=== PATIENT | male | born 1935 | race Caucasian/White ===

== ENCOUNTER 2019-11-26 20:18 | Inpatient (IN) | payer MEDICAID ==
[~2019-11-26] VITALS: Ht 172.7 cm; Wt 93.0 kg
[2019-11-27] VITALS (7 sets, daily range): BP systolic 145–192; BP diastolic 83–108
--- NOTE | 2019-11-27 00:40 | NUR ---
small wind energy installertentmaker notes Received Pt from [facility] ambulance service Rehabilitation Services Aide. Pt is a direct admit from [facility]. Pt arrived at the unit with a gurney and ACLS protocol. Pt is 84 Y O M with a diagnose of Accelerated hypertension by Stas Benitez MD. Pt is alert and orientedx2-3 with episode of confusion. Respiration is normal and unlabored. No SOB. No S/S of distress noted. Tele monitor showed sinus rhytm. IV sites at R hand# 22 is clean, intact, and flush without resistance. Pt is complaining of back pain and bilateral knee pain. MD is aware and notified. Skin assessment is done and performed. Skin pictures are taken and placed at Pt's chart. [place] Pt to the room and the use of amenities and the use of call light. Pt's belongings was checked by BRITTNI Belle and signed by Pt. Safety precautions is maintained. Bed at low position, brakes locked, side rails upX3, urinal at the bed side and call light is within reach. Will continue to monitor.
[2019-11-27] MEDS ORDERED: ASPI-1169 PO (01:54)
[2019-11-27] MEDS ORDERED: LISI40TA4 PO (01:54)
[2019-11-27] MEDS ORDERED: LORA-259 PO (01:54)
[2019-11-27] MEDS ORDERED: HYDR-4384 PO (01:54)
[2019-11-27] MEDS ORDERED: Z GUARD REMEDY 2 OZ OINT TP PRN (03:00)
[2019-11-27] MEDS ORDERED: ONDANSETRON HCL/PF 4 MG/2 ML VIAL IVP PRN (03:00)
[2019-11-27] MEDS ORDERED: HYDROCODONE/APAP 5/325MG 1 EACH TABLET PO SCH (03:00)
[2019-11-27] MEDS ORDERED: LORAZEPAM 1 MG TABLET PO PRN (03:00)
[2019-11-27] MEDS ORDERED: POTASSIUM CHLORIDE 20 MEQ TAB.PRT.SR PO ONE (03:00)
[2019-11-27] MEDS ORDERED: ACETAMINOPHEN 325 MG TABLET PO PRN (03:00)
[2019-11-27] MEDS ORDERED: MAG HYDROX/AL HYDROX/SIMETH 30 ML UDC PO PRN (03:00)
[2019-11-27] MEDS ORDERED: ZOLPIDEM TARTRATE 5 MG TABLET PO PRN (03:00)
--- NOTE | 2019-11-27 03:00 | NUR ---
physician coder notes Informed and notified Stas Benitez MD regarding covid 19 swab. Pt came from [facility] and has not been tested for covid 19. Pt is afebrile at this time. Pt stated Pt has fever before coming to [facility]. ordered covid 19 swab rapid test. Ordered carried out.
[2019-11-27] MEDS: HYDROCODONE/APAP 5/325MG 1 EACH TABLET PO PRN ×3 (03:55→20:08)
[2019-11-27] MEDS: hydrALAZINE HCL 25 MG TABLET PO SCH ×3 (04:04→20:49)
--- NOTE | 2019-11-27 04:10 | NUR ---
spinning bath person notes Collected UA from patient. Went to lab to dropped UA and picked up covid 19 rapid test.
--- NOTE | 2019-11-27 04:23 | NUR ---
weatherization technician notes Swab Pt for covid 19 rapid test as ordered. Pt tolerated well. Pt verbalized understanding. Dropped covid 19 test to lab.
--- NOTE | 2019-11-27 05:00 | NUR ---
whistle punk notes Received a phone call from lab regarding Pt's result covid 19 rapid test is negative. Will continue to monitor.
--- NOTE | 2019-11-27 06:50 | NUR ---
can pusher closing notes Pt is resting in bed comfortably. Pt is alert and orientedX2 with episode of confusion. Respiration is even and unlabored. No SOB. No S/S of distress noted. Routine meds were given as ordered. VS is stable. Tele monitor showed SR. IV sites at R hand# 22 is clean, intact, patent and SL. All needs met and attended. Safety precautions is maintained. Bed at low position, brakes locked, side rails upX2 and call light is within reach. Will endorse to morning for CHELY.
[2019-11-27 07:48] LABS: APPEARANCE,URINE CLEAR (CLEAR); BILIRUBIN,URINE NEGATIVE (NEGATIVE); BLOOD, URINE TRACE-INTA Ery/uL (NEGATIVE); COLOR,URINE YELLOW (YELLOW); KETONES,URINE 15 (NEGATIVE); LEUKOCYTE ESTERASE ,URINE NEGATIVE (NEGATIVE); NITRITE, URINE NEGATIVE (NEGATIVE); PROTEIN,URINE 30 mg/dl (NEGATIVE); UGLUCOSE NEGATIVE (NEGATIVE); UROBILINOGEN,URINE 0.2 EU/dL (0.2)
[2019-11-27 08:03] LABS: BASOPHILS # (AUTO) 0.1 /CMM (0.0-0.2); BASOPHILS % (AUTO) 0.6 % (0.0-2.0); HEMATOCRIT 49 % (39-51); HEMOGLOBIN 16.3 g/dL (13.5-17.5); LYMPHOCYTES # (AUTO) 1.6 /CMM (0.8-4.8); MEAN CORPUSCULAR HGB CONC 34 g/dl (31.0-36.0); MEAN CORPUSCULAR VOLUME 97 fL (80-96); MONOCYTES # (AUTO) 0.8 /CMM (0.1-1.30); MONOCYTES % (AUTO) 8.3 % (2.0-12.0); NEUTROPHILS # (AUTO) 7.3 /CMM (1.8-8.9); NEUTROPHILS % (AUTO) 74.1 % (43.0-81.0); PLATELET COUNT (AUTO) 233 /CMM (150-450); RED BLOOD CELL COUNT(AUTO) 5.01 MIL/uL (4.5-6.0); WHITE BLOOD COUNT (AUTO) 9.8 K/uL (4.3-11.0)
--- NOTE | 2019-11-27 08:10 | NUR ---
bowling ball grader opening notes Pt is resting in bed comfortably. Pt is alert and orientedX2 with episode of confusion. Respiration is even and unlabored. No SOB. No S/S of distress noted. Routine VS is stable. Tele monitor showed SR. IV sites at R hand# 22 is clean, intact, patent and SL. All needs met and attended. Safety precautions is maintained. Bed at low position, brakes locked, side rails upX2 and call light is within reach. Will continue to monitor.
[2019-11-27 08:14] LABS: CALCIUM, SERUM 9.4 mg/dL (8.5-10.1); CREATININE 1.1 mg/dL (0.6-1.3); MAGNESIUM 2.2 mg/dL (1.8-2.4); PHOSPHORUS 2.5 mg/dL (2.5-4.9); POTASSIUM 3.6 mmol/L (3.5-5.1)
[2019-11-27] MEDS: ASPIRIN 81 MG TAB.CHEW PO SCH (08:24)
[2019-11-27] MEDS: LISINOPRIL (20MG) 20 MG TABLET PO SCH (08:30)
--- NOTE | 2019-11-27 08:54 | NUR ---
WOUND CARE CONSULT: PT PRESENTS WITH RASH/REDNESS TO ABDOMINAL/GROIN FOLDS, PERINEUM AND SCROTUM, PRESENT ON ADMISSION. PT IS INCONTINENT AND HAS DIFFICULTY USING URINAL PER NURSING STAFF. RECOMMENDATIONS MADE FOR SKIN PROTECTION. DISCUSSED WITH NURSING STAFF. PT IS ON CHUNG ISOFLEX LOW AIRLOSS BED. WILL SEE PRN. CINTRON IN AGREEMENT WITH PLAN OF CARE. Addendum: 11/27/19 at 0855 by CHARLIE BRAXTON WNDNU Amended: Links added.
[2019-11-27 10:01] LABS: BACTERIA,URINE Few /HPF (None Seen); SQUAMOUS EPITHELIAL CELL,UR Rare /HPF (None Seen); TRIPLE PHOSPHATE CRYSTAL,UR Few /HPF (None Seen); WBC,URINE 0-2 /HPF (0-3)
[2019-11-27] MEDS: ENOXAPARIN SODIUM 40 MG/0.4 ML DISP.SYRIN SQ SCH (10:52)
[2019-11-27] MEDS: CLOTRIMAZOLE 1% 15 GM TUBE TP SCH ×2 (10:54→17:39)
[2019-11-27 12:46] LABS: THYROID STIMULATING HORMONE 0.318 uIU/mL (0.358-3.74)
[2019-11-27] MEDS: CARVEDILOL 12.5 MG TABLET PO SCH ×2 (12:57→20:50)
[2019-11-27] MEDS ORDERED: IBUPROFEN 400 MG TABLET PO PRN (15:00)
--- NOTE | 2019-11-27 17:52 | NUR ---
high school professional closing notes Pt is resting in bed comfortably. Pt is alert and orientedX2 with episode of confusion getting out of bed walking around not compliant with instructions. Respiration is even and unlabored. No SOB. No S/S of distress noted. VS is stable. Tele monitor D/C. IV sites at R hand# 22 pt pulled it out ,site intact, p. All needs met and attended. Safety precautions is maintained. Bed at low position, alarms on ,brakes locked, side rails upX2 and call light is within reach. Will endorse to oncoming nurse for CHELY.
--- NOTE | 2019-11-27 20:00 | NUR ---
MS RN OPENING NOTES RECEIVED PATIENT IN BED, AWAKE, CONSCIOUS, COOPERATIVE, AMBULATORY WITH ASSIST, BREATHING AT ROOM AIR, UNLABORED BREATHING, NO SIGNS OF RESPIRTORY DISTRESS, NO IV ACCESS, PER NURSE FROM AM SHIFT PATIENT PULLED OUT IV ACCESS, SIDE RAILS UP.
[2019-11-28] VITALS (12 sets, daily range): BP systolic 103–193; BP diastolic 47–115
[2019-11-28] MEDS: HYDROCODONE/APAP 5/325MG 1 EACH TABLET PO PRN ×2 (04:35→09:16)
[2019-11-28] MEDS: hydrALAZINE HCL 25 MG TABLET PO SCH (05:41)
--- NOTE | 2019-11-28 05:41 | NUR ---
MS RN NOTES PATIENT'S BP- 213/129, HR- 93. PATIENT WAS WALKING AND IN PAIN PRIOR TO V/S.
--- NOTE | 2019-11-28 06:15 | NUR ---
MS RN NOTES ADVISED PATIENT TO LAY DOWN IN BED. JOHN- 195/115, HR- 89.
--- NOTE | 2019-11-28 06:40 | NUR ---
MS RN NOTES WHILE PATIENT IS COOPERATIVE IN LAYING IN BED. BP- 190/115, HR- 89.
--- NOTE | 2019-11-28 06:47 | NUR ---
MS RN CLOSING NOTES ENDORSED PATIENT IN BED, AWAKE, CONSCIOUS, COOPERATIVE, AMBULATORY WITH ASSIST, BREATHING AT ROOM AIR, UNLABORED BREATHING, NO SIGNS OF RESPIRATORY DISTRESS, NO IV ACCESS, PER NURSE FROM AM SHIFT YESTERDAY PATIENT PULLED OUT IV ACCESS, SIDE RAILS UP FOR SAFETY, DUE MEDS GIVEN, PAIN MED GIVEN.
--- NOTE | 2019-11-28 06:57 | NUR ---
MS RN NOTES PATIENT'S BP- 197/106, HR- 90.
--- NOTE | 2019-11-28 07:29 | NUR ---
WOUND CARE: PT IS REQUESTING NAIL TRIM. DR CASTRO TO BE CONSULTED FOR NAILS. MD IN AGREEMENT WITH PLAN OF CARE.
--- NOTE | 2019-11-28 07:30 | NUR ---
RN Opening note Received patient in bed, AO x 2-3, confused, able to responds all stimuli. Does no c/o pain or distress. Skin is warm to touch, kept clean/dry. Respiratory even and unlabored in room air. Keep bed in lock with elevated HOB for ensure airway and aspiration precaution. Call light within reach, will continue to monitor for safety.
[2019-11-28 08:04] LABS: BASOPHILS % (AUTO) 0.3 % (0.0-2.0); EOSINOPHILS % (AUTO) 1.8 % (0.0-6.0); HEMATOCRIT 47 % (39-51); HEMOGLOBIN 15.8 g/dL (13.5-17.5); LYMPHOCYTES # (AUTO) 1.7 /CMM (0.8-4.8); LYMPHOCYTES % (AUTO) 18.4 % (20.0-44.0); MEAN CORPUSCULAR HGB CONC 34 g/dl (31.0-36.0); MEAN CORPUSCULAR VOLUME 98 fL (80-96); MONOCYTES # (AUTO) 0.7 /CMM (0.1-1.30); MONOCYTES % (AUTO) 7.3 % (2.0-12.0); NEUTROPHILS # (AUTO) 6.5 /CMM (1.8-8.9); NEUTROPHILS % (AUTO) 72.2 % (43.0-81.0); PLATELET COUNT (AUTO) 231 /CMM (150-450); RED BLOOD CELL COUNT(AUTO) 4.84 MIL/uL (4.5-6.0)
[2019-11-28 08:17] LABS: ALBUMIN 3.3 g/dL (3.4-5.0); BILIRUBIN,TOTAL 0.8 mg/dL (0.2-1.0); CALCIUM, SERUM 9.3 mg/dL (8.5-10.1); MAGNESIUM 2.2 mg/dL (1.8-2.4); PHOSPHORUS 2.4 mg/dL (2.5-4.9); POTASSIUM 3.9 mmol/L (3.5-5.1); TOTAL PROTEIN, SERUM 7.6 g/dL (6.4-8.2)
[2019-11-28] MEDS: ENOXAPARIN SODIUM 40 MG/0.4 ML DISP.SYRIN SQ SCH (08:59)
[2019-11-28] MEDS: ASPIRIN 81 MG TAB.CHEW PO SCH (08:59)
[2019-11-28] MEDS: LISINOPRIL (20MG) 20 MG TABLET PO SCH ×2 (09:00→16:59)
[2019-11-28] MEDS ORDERED: CLONIDINE HCL 0.1 MG TABLET PO PRN (09:00)
[2019-11-28] MEDS: CARVEDILOL 12.5 MG TABLET PO SCH ×2 (09:00→21:20)
[2019-11-28] MEDS: CLOTRIMAZOLE 1% 15 GM TUBE TP SCH ×2 (09:01→17:01)
[2019-11-28] MEDS: ISOSORBIDE DINITRATE (20MG) 20 MG TABLET PO SCH ×2 (09:18→16:58)
--- NOTE | 2019-11-28 09:38 | NUR ---
Patient going have CTA, obtained sign of consent by Son/Mikey Jimenez
[2019-11-28] MEDS ORDERED: K PHOS NEUTRAL 250 MG TABLET PO ONE (10:00)
[2019-11-28] MEDS ORDERED: IV NS 0.9% 500 ML IV ONE (11:00)
[2019-11-28] MEDS ORDERED: hydrALAZINE HCL 25 MG TABLET PO SCH (13:00)
[2019-11-28] MEDS: hydrALAZINE HCL 50 MG TABLET PO SCH ×2 (13:00→21:19)
--- NOTE | 2019-11-28 15:45 | NUR ---
10:20 Arrived tag and label cutter to case picker patient for CTA, noticed decrease bp -109/62, p-97. Rechecked with large size bp cuff shows sbp-77, pale face in color, called rapid response. Rechecked BP-98/56, p-97, BS:154mg/dl, DNP/Edel was bed side and received order start 500ml NS bolus x 1, check vital sign Q15min x 1hour, hold BP, pain meds and pt going Tele. Documented vital signs on intervention. Patient is stable vital signs, respiratory even and unlabored in room air. Pt left to CTA in stable condition.
--- NOTE | 2019-11-28 16:30 | NUR ---
Patient is back from CTA in stable condition.
--- NOTE | 2019-11-28 17:55 | NUR ---
RN Closing note Patient in bed comfortably, no s/s of distress observed. Pt had rapid response and cancelled in 2 min due to patient stable condition. Does no c/o pain, skin is warm to touch, kept clean/dry, patient pulled new IV site, and replaced again IV line on right AC 22 gauge by helper animal laboratory. Respiratory even and unlabored with oxygen. Keep bed in lock with elevated HOB for ensure airway and aspiration precaution. Call light within reach, will endorse warehouse shift supervisor.
--- NOTE | 2019-11-28 17:56 | NUR ---
Patient left to CTA in stable condition.
[2019-11-28] MEDS ORDERED: IV NS 0.9% 250 ML IV ONE (17:59)
[2019-11-28] MEDS ORDERED: IOHEXOL-350 100 ML VIAL IV ONE (17:59)
[2019-11-28] MEDS ORDERED: METOPROLOL TARTRATE INJ 5 MG/5 ML AMPUL ONE ×4 (18:11→18:55)
[2019-11-28] MEDS ORDERED: NITROGLYCERIN 0.4 MG/TAB BOTTLE ONE (18:11)
[2019-11-28] MEDS: METOPROLOL TARTRATE INJ 5 MG/5 ML AMPUL IVP PRN ×10 (18:13→18:58)
--- NOTE | 2019-11-28 19:18 | NUR ---
CTA PROCEDURE WELL TOLERATED BY THE PT. V/S STABLE. KEPT RESTED AND COMFORTABLE. REPORT GIVEN TO PRIMARY RN FOR CHELY AND MONITORING.
--- NOTE | 2019-11-28 19:40 | NUR ---
COMMERCIAL SUBCONTRACTOR OPENING NOTES RECEIVED PATIENT FROM CTA PROCEDURE, ALERT AND ORIENTED X 2-3. VERBALLY RESPONSIVE AND ABLE TO FOLLOW DIRECTIONS. BREATHING REGULAR AND UNLABORED ON ROOM AIR. LEFT AC G22 IV LINE INTACT AND PATENT, FLUSHING WELL WITH NO BLEEDING OR S/S OF INFILTRATION NOTED. ON CARDIAC MONITORING WITH NSR AT 89bpm. DENIES SUICIDAL IDEATION OF PAIN/DISCOMFORT AT THIS TIME. BED LOW AND LOCKED ON SEMI FOWLERS POSITION. CALL LIGHT IN REACH. WILL CONTINUE TO MONITOR.
[2019-11-28] MEDS ORDERED: NITROGLYCERIN 0.4 MG/TAB BOTTLE SL ONE (20:00)
--- NOTE | 2019-11-28 21:20 | NUR ---
HAND FLESHER NOTES BP 190/115, DUE HYDRALAZINE AND CARVEDILOL GIVEN BY MOUTH. WILL RECHECK BP AFTER 1HR.
--- NOTE | 2019-11-28 22:20 | NUR ---
OLD COIN DEALER NOTES BP 122/79 HR 83
[2019-11-29] VITALS: BP 141/88
[2019-11-29] MEDS: HYDROCODONE/APAP 5/325MG 1 EACH TABLET PO PRN (00:13)
--- NOTE | 2019-11-29 00:15 | NUR ---
MAGAZINE FILLER NOTES COMPLAINED OF 7/10 LOWER BACK PAIN, NORCO 5/325 GIVEN BY MOUTH. NON-PHARMACOLOGICAL INTERVENTIONS PROVIDED. VITAL SIGNS WNL. WILL CONTINUE TO MONITOR.
[2019-11-29 04:00] VITALS: BP_SYST 152; BP_SYST 161; BP_DIAS 89; BP_DIAS 95
--- NOTE | 2019-11-29 04:30 | NUR ---
LEAD QA ANALYST NOTES BP 161/95, DUE HYDRALAZINE GIVEN BY MOUTH. WILL RECHECK BP AFTER 1HR.
[2019-11-29 05:00] VITALS: BP 152/79
[2019-11-29] MEDS: hydrALAZINE HCL 50 MG TABLET PO SCH ×2 (05:13→12:43)
--- NOTE | 2019-11-29 05:30 | NUR ---
GROCERY STORE BAGGER NOTES BP 1552/79 HR 89
--- NOTE | 2019-11-29 06:20 | NUR ---
MACHINE FEED OPERATOR CLOSING NOTES PATIENT IN BED ALERT AND ORIENTED X 2-3 FORGETFUL AND WITH EPISODES OF CONFUSION. AFEBRILE WITH NO S/S OF DISTRESS OBSERVED. LEFT AC G22 IV LINE PATENT AND FLUSHING WELL MAINTAINED ON CARDIAC MONITORING WITH NSR AT 85bpm. NO COMPLAINTS OF PAIN/DISCOMFORT REPORTED AT THIS TIME. BED LOW AND LOCKED ON SEMI FOWLERS POSITION. CALL LIGHT IN REACH. WILL ENDORSE TO MORNING SHIFT FOR CHELY.
[2019-11-29 07:28] LABS: BASOPHILS % (AUTO) 0.4 % (0.0-2.0); EOSINOPHILS % (AUTO) 1.7 % (0.0-6.0); HEMATOCRIT 43 % (39-51); HEMOGLOBIN 14.3 g/dL (13.5-17.5); LYMPHOCYTES # (AUTO) 1.5 /CMM (0.8-4.8); LYMPHOCYTES % (AUTO) 16.1 % (20.0-44.0); MEAN CORPUSCULAR HGB CONC 33 g/dl (31.0-36.0); MEAN CORPUSCULAR VOLUME 97 fL (80-96); MONOCYTES # (AUTO) 0.7 /CMM (0.1-1.30); MONOCYTES % (AUTO) 7.4 % (2.0-12.0); NEUTROPHILS # (AUTO) 6.9 /CMM (1.8-8.9); NEUTROPHILS % (AUTO) 74.4 % (43.0-81.0); PLATELET COUNT (AUTO) 215 /CMM (150-450); RED BLOOD CELL COUNT(AUTO) 4.42 MIL/uL (4.5-6.0); WHITE BLOOD COUNT (AUTO) 9.3 K/uL (4.3-11.0)
[2019-11-29 07:33] LABS: CALCIUM, SERUM 8.8 mg/dL (8.5-10.1); CREATININE 1.2 mg/dL (0.6-1.3); MAGNESIUM 2.1 mg/dL (1.8-2.4); PHOSPHORUS 3.4 mg/dL (2.5-4.9); POTASSIUM 3.4 mmol/L (3.5-5.1)
[2019-11-29 08:00] VITALS: BP 141/93
[2019-11-29] MEDS: ASPIRIN 81 MG TAB.CHEW PO SCH (08:46)
[2019-11-29] MEDS: CARVEDILOL 12.5 MG TABLET PO SCH (08:47)
[2019-11-29] MEDS: POTASSIUM CHLORIDE 20 MEQ TAB.PRT.SR PO SCH ×2 (08:47→08:57)
[2019-11-29] MEDS: ENOXAPARIN SODIUM 40 MG/0.4 ML DISP.SYRIN SQ SCH (08:48)
[2019-11-29] MEDS: CLOTRIMAZOLE 1% 15 GM TUBE TP SCH ×2 (08:58→16:33)
[2019-11-29] MEDS: LISINOPRIL (20MG) 20 MG TABLET PO SCH ×2 (09:00→17:00)
[2019-11-29] MEDS: ISOSORBIDE DINITRATE (20MG) 20 MG TABLET PO SCH ×2 (09:57→16:31)
--- NOTE | 2019-11-29 12:44 | NUR ---
RN NOTEDS-- HYDRALAZINE HELD D/T PT HAVING EPISODES OF HYPOTENSION. CURRENT BP 115/63, HR 74. WILL CONTINUE TO MONITOR.
[2019-11-29 16:00] VITALS: BP 122/85
[2019-11-29] MEDS ORDERED: CLOT15CR35 TP (16:27)
[2019-11-29] MEDS ORDERED: CARV12.52 PO (16:27)
[2019-11-29] MEDS ORDERED: LISI-603 PO (16:27)
[2019-11-29] MEDS ORDERED: HYDR-4077 PO (16:27)
[2019-11-29] MEDS ORDERED: ISOS20TA8 PO (16:27)
[2019-11-29 17:00] VITALS: BP 110/78
--- NOTE | 2019-11-29 18:24 | NUR ---
KEYSMITH NOTE PT MEDICALLY CLEARED AND DISCHARGED TO HOME VIA AMBULANCE IN STABLE CONDITION. PT IS A/OX3, AFEBRILE. RESPIRATIONS ARE EVEN AND UNLABORED, NOT IN ANY ACUTE DISTRESS NOTED. dENIES ANY CHEST PAIN, N/V, DIZZINESS. ABDOMEN IS SOFT AND NONDISTENDED, BOWEL SOUNDS ARE PRESENT IN ALL 4 QUADRANTS UPON. +FLATUS, X1BM DURING SHIFT. VOIDS. PT IS CONTINENT, ABLE TO AMBULATE WITH ASSIST. ALL BELONGINGS SENT WITH PT INCLUDING CLOTHES, WALLET AND WATCH. EXPLAINED DISCHARGE PAPERWORK TO PT AND SON KAE W/ VERBAL AND WRITTEN UNDERSTANDING. BEDSIDE ENDORSEMENT GIVEN TO EMT PERSONNEL. PT LEFT IN STABLE CONDITION.
== END 2019-11-29 18:25 | disposition home or self-care (01) | DRG 199 ==
LOC: EDBD 11-27 00:03 → TELE 11-27 00:03 → MED 11-27 13:30 → TELE 11-28 10:42
PROVIDERS: ADMIT Registered Nurse; ATTEND Registered Nurse
PROC: 0HBRXZZ Excision of Toe Nail, External Approach (ICD-10-PCS; principal; 2019-11-27)
DX: I16.0 Hypertensive urgency (principal); I21.A1 Myocardial infarction type 2; F41.9 Anxiety disorder, unspecified; I10 Essential (primary) hypertension; I25.10 Atherosclerotic heart disease of native coronary artery without angina pectoris; R55 Syncope and collapse; Z95.1 Presence of aortocoronary bypass graft; J44.9 Chronic obstructive pulmonary disease, unspecified; Z86.73 Personal history of transient ischemic attack (TIA), and cerebral infarction without residual deficits; Z79.01 Long term (current) use of anticoagulants; G89.29 Other chronic pain; M54.5 Low back pain; Z96.653 Presence of artificial knee joint, bilateral; F03.90 Unspecified dementia, unspecified severity, without behavioral disturbance, psychotic disturbance, mood disturbance, and anxiety; E66.9 Obesity, unspecified; Z68.31 Body mass index [BMI] 31.0-31.9, adult; I95.9 Hypotension, unspecified; B35.1 Tinea unguium; Z87.891 Personal history of nicotine dependence
CPT/HCPCS: 36415; 71045-TC; 75574; 80048-TC; 80053-TC; 80061-TC; 81000-TC; 82962-TC; 83735-TC; 84100-TC; 84439-TC; 84443-TC; 84484-TC; 85025-TC; 87081-TC; 93307-TC; G0378; J1650; J3490; J7040; J7050; Q9967